=== PATIENT | female | born 1935 ===

== ENCOUNTER 2024-11-30 15:44 | Inpatient (IN) | payer MEDICARE, SELFPAY ==
--- NOTE | ~2024-11-30 | CT_ITS ---
CLINICAL HISTORY: Stroke Protocol r sided weakness ?cva CT head without contrast. COMPARISON: None FINDINGS: The visualized paranasal sinuses are clear. The mastoid air cells are clear. No calvarial fracture. Atherosclerotic intracranial vasculature. No evidence for mass or mass effect. No intracranial hemorrhage or abnormal extra-axial fluid collection. No CT evidence of acute infarct. The ventricles are proportional with the degree of moderate global cerebral volume loss without evidence of hydrocephalus. Basilar cisterns are patent. There are periventricular areas of low attenuation compatible with moderate white matter small vessel disease. Posterior fossa appears unremarkable. IMPRESSION: 1. No acute intracranial findings. This document has been electronically signed by: Sotero Rivas MD on 11/30/2024 16:10:22
--- NOTE | ~2024-11-30 | MR_ITS ---
CLINICAL HISTORY: AMS MR Brain without gadolinium Comparison: CT/SR - CT ANGIO HEAD NECK STROKE - 11/30/24 15:[address]/SR - CT HEAD FOR STROKE - 11/30/24 15:52 EDT Findings: Left basal ganglia restricted diffusion involving the correlate in putamen consistent with acute infarct. There is associated T2/FLAIR hyperintensity. Additional punctate foci of restricted diffusion within the left frontal lobe superior and middle frontal gyrus. Abnormal gradient susceptibility. Moderate periventricular subcortical T2/FLAIR hyperintensities consistent with chronic microvascular ischemic changes. No midline shift. No hydrocephalus. Vascular flow voids are intact. Orbital contents are unremarkable. The sinuses and mastoid air cells are clear. No focal bone lesion. 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 No acute intracranial hemorrhage. Moderate periventricular and subcortical chronic microvascular ischemic changes. This document has been electronically signed by: Babak Quinones MD on 11/30/2024 22:33:03
--- NOTE | ~2024-11-30 | XR_ITS ---
CLINICAL HISTORY: WBC 19, source unclear, weakness Single view of the chest. COMPARISON: None FINDINGS: Borderline cardiomegaly. Atherosclerotic thoracic aorta. Prominence of the central pulmonary vasculature, likely positional. No consolidation. No definite pleural effusion. No pneumothorax. Mild rightward curvature of the midthoracic spine. No fracture identified. IMPRESSION: 1. No consolidation. This document has been electronically signed by: Sotero Rivas MD on 11/30/2024 17:56:07
--- NOTE | ~2024-11-30 | CT_ITS ---
CLINICAL HISTORY: Stroke Protocol r siided weakness CT angiography head and neck with contrast. 3D Postprocessing. COMPARISON: CT head dated 11/30/24 at 15:52 EDT FINDINGS: Calcified plaque present along the aortic arch without significant stenosis. Calcified plaque present along the arch branch vessel origins without significant stenosis. Atherosclerotic plaque present at the origins of the vertebral arteries bilaterally causing less than 50 percent on the left without significant stenosis on the right. Multiple small pockets of calcified plaque present along the common carotid arteries and at the carotid bulbs bilaterally without significant stenosis. Calcified plaque present along the intracranial internal carotid arteries without significant stenosis. Calcified plaque present along the cavernous portion of the internal carotid arteries without significant stenosis. Otherwise the intracranial arteries are widely patent No aneurysm, dissection, hemodynamically significant stenoses, or occlusion. No abnormal intracranial enhancement. The visualized thyroid gland is unremarkable. No cervical mass or fluid collection. Visualized lung apices are clear. Grade 1 retrolisthesis of C4 on C5, degenerative. Moderate multilevel spondylosis. No acute fracture or suspicious bone lesion. IMPRESSION: 1. Patent head and neck CTA. This document has been electronically signed by: Sotero Rivas MD on 11/30/2024 16:31:23
--- NOTE | ~2024-11-30 | XR_ITS ---
CLINICAL HISTORY: fall left buttock bruising AP pelvis, Two views of the right hip. COMPARISON: None FINDINGS: Osteopenia. Pelvic ring appears intact. Contrast present within the urinary bladder. Pelvic phleboliths present. Atherosclerotic vascular calcifications. Degenerative changes of the partially visualized lower lumbar spine. Visualized portions of the contralateral left hip appear intact. Right hip: Visualized portions of the proximal right femur appears intact. No trabecular disruption or cortical discontinuity. Femoral head is appropriately seated in the acetabulum. IMPRESSION: 1. No radiographic evidence of acute injury to the pelvis and right hip. 2. Osteopenia. This document has been electronically signed by: Sotero Rivas MD on 11/30/2024 20:01:44
[2024-11-30 15:46] VITALS: BMI 23.8
--- NOTE | 2024-11-30 15:46 | ECG_ITS ---
Test Reason : ?STROKE Blood Pressure : */* mmHG Vent. Rate : 86 BPM Atrial Rate : 86 BPM P-R Int : 214 ms QRS Dur : 84 ms QT Int : 378 ms P-R-T Axes : 73 58 63 degrees QTcB Int : 452 ms Sinus rhythm with 1st degree A-V block with occasional Premature ventricular complexes Left atrial enlargement Borderline ECG No previous ECGs available Referred By: Kyle Manzano Electronically Signed By: TAYA JACOBSEN
--- NOTE | 2024-11-30 15:50 | ED.GENADULT ---
HPI - General Adult General Chief complaint: Stroke Stated complaint: fall,ams, wkns Time Seen by Provider: 11/30/24 15:46 History of Present Illness ED Provider: Peggy RODRIGUEZ narrative: The patient is an 89-year-old woman who lives at the [facility] with the . Apparently she was in her usual state of health this morning when she ate breakfast. At around 10:00 AM she had a fall. The exact timing of the fall is not clear. The fall occurred in her apartment where she lives with a her . Her has some degree of cognitive impairment. Just before 11:00 AM the patient's daughter happened to call and the answered the phone and explained that the patient was on the floor after a fall. It was not clear if the patient had hit her head because it was not clear if the patient's had witnessed the fall. At that point the daughter contacted staff at the facility and staff helped the patient into the bed. I think the patient was felt to be slightly confused at that time but not severely so. Over the course of the afternoon the degree of confusion seemed more significant and ultimately she was sent to the hospital by ambulance. Staff felt that there might be some right-sided neglect. On arrival here the patient is denying any pain. She denies a headache, chest pain, abdominal pain, nausea, vomiting. There was no report of any fever at the assisted living facility. The patient is poorly oriented and the daughter who was at the bedside says that her mental status is not her usual mental status. Related Data Home Medications ?Medication ?Instructions ?Recorded ?Confirmed No Known Home Meds 11/30/24 11/30/24 Allergies Allergy/AdvReac Type Severity Reaction Status Date / Time No Known Allergies Allergy Verified 11/30/24 16:20 Review of Systems Review of Systems: Yes all other systems are reviewed and are negative [facility] Social History Social History Smoked in Last 30 Days: No Use of substances other than those prescribed or required for medical reasons: No Advance Directives: No Advance Directives Information Provided: No Do you have a plan to hurt others: No Plan Physical Exam ED Vital Signs: Vital Signs - 24 hr 11/30/24 16:00 11/30/24 16:07 11/30/24 18:47 Temperature 99.1 F 98.2 F 99.8 F Pulse Rate 78 87 93 Respiratory Rate 16 18 19 Blood Pressure 134/75 133/55 L 123/67 Pulse Oximetry 98 93 96 Oxygen Delivery Method Room Air Room Air Room Air 11/30/24 18:52 Temperature 99.8 F Pulse Rate Respiratory Rate Blood Pressure Pulse Oximetry Oxygen Delivery Method BMI result Body Mass Index 23.8 Const Other: The patient is an 89-year-old woman who is awake and alert. She does not seem in acute distress. Her level of alertness seems normal but she is poorly oriented. She is able to tell me her correct age and she is able to tell me the correct month but she was unable to tell me that we were and a hospital or that we were in [place]. She seemed to think we were in [place]. HENMT Other: No obvious facial asymmetry. The tongue is midline. Mucous membranes are moist. Eyes Other: Pupils are round equal, extraocular movements are intact, lateral gaze is intact bilaterally, visual diaz are intact to confrontation. Neck Other: No posterior midline C-spine tenderness. No pain with range of motion of the neck. The C-spine is clinically clear. The neck seems supple. Resp Effort & Inspection: normal respiratory effort Auscultation: clear to auscultation bilaterally Cardio Rate: regular rate Rhythm: regular rhythm Heart sounds: S1 normal heart sound present and S2 normal heart sound present GI Other: Abdomen is soft and nontender Back/Spine/Pelvis Other: No midline vertebral tenderness in the thoracic or lumbar spine. No signs of trauma to the spine or back Skin Other: there is some small areas of bruising on the right upper buttock. The skin is otherwise dry and unremarkable. Neuro Other: the patient is awake and alert. She is able to tell me her correct age and the correct month but she can not tell me the correct year or tell me where we are. She seems poorly oriented with the guard to the year and location. She was able to tell me the name of her daughter who was at the bedside. However she identified her daughter has a granddaughter. Lateral gaze is intact bilaterally. Visual diaz are intact bilaterally. No definite facial asymmetry. No dysarthria. She may have some mild aphasia primarily manifested by paucity of speech.. The patient has good strength in all 4 extremities although there is a very minimal hint of a possible slight right arm pronator drift. 5/5 strength in both legs. Coordination seems intact. Finger-nose seems reasonably good, heel-dee seems reasonably Good. NIH stroke scale is low, it is possible she has some very mild right arm pronator drift which would give her a point. There may be some slight aphasia which would also give her a point. Overall there is a vague sense that she seems more oriented to the left so there is possibly some very mild right-sided neglect. At most NIH stroke scale is 3. Extrem Other: No peripheral edema Medications Administered Discontinued Medications Generic Name Dose Route Start Last Admin Trade Name Shviani PRN Reason Stop Dose Admin Aspirin 324 mg 11/30/24 18:54 11/30/24 19:45 Aspirin 81 Mg Tab.Chew PO 11/30/24 18:55 324 mg ONCE ONE Administration Aspirin 325 mg 11/30/24 22:41 11/30/24 22:48 Aspirin Enteric Coated 325 Mg Tablet.Dr PO 11/30/24 22:42 Not Given ONCE ONE Lactated Ringer's 500 mls @ 999 mls/hr 11/30/24 19:15 11/30/24 21:00 Lr IV 11/30/24 19:45 Infused .Q31M JAYA Infusion Iohexol 100 ml 11/30/24 16:08 11/30/24 16:08 Iohexol 350 Mg/Ml 100 Ml Infus..Btl IV 11/30/24 16:09 65 ml ONCE ONE Administration Medical Decision Making Medical Decision Making MDM Narrative: The patient is an 89-year-old female who, according to her daughter, does not have a significant history of cognitive impairment. The patient lives at an assisted living facility with her . They share an apartment. Apparently the has cognitive impairment. It seems as though the the patient was in her normal state of mind this morning at breakfast. Staff had observed her as being well this morning. At some point later in the morning however the patient had a fall in her apartment. It is not clear if this was a witnessed fall or not. The would has been the only witness. Apparently the tried to get the patient off the floor but was unable to. Ultimately the patient's daughter happened to call the for unrelated reasons at the told the daughter about the fall. At that point the daughter contacted staff at the facility and staff helped the patient into her bed. The patient may have been mildly confused at that time. during the afternoon the patient seemed to be come possibly more confused and ultimately she was sent to the hospital. There was some concern about possible right-sided weakness or neglect. The daughter who made the call just before 11:00 AM suspects that the fall might have happened at around 10:00 AM. The patient arrived at the hospital at 15:44, this would be outside the window for consideration of thrombolytic therapy if the patient's symptoms are related to a stroke today. Based on my discussion with the daughter I would say that the patient's last known well time was sometime before 10:00 AM. The patient therefore presented outside the window for thrombolytic therapy. Her CT angiogram showed no acute vascular occlusion. The patient is physical exam is most significant for disorientation and a somewhat flat affect. There is a vague sense of possible right pronator drift that is very subtle. She also seems to have a tendency to pay more attention to the left side of the world but if this is neglect is quite subtle. I initially had a suspicion that the patient's presentation might be more related to an infectious process but her infectious workup is negative. [place] [id number] but we have taken too rectal temperature is and there is no fever. Her CRP and procalcitonin are unremarkable. Ultimately I did not see any indication for antibiotics. Additionally her viral swab is negative. It was clear that the patient would need to be hospitalized because of this acute change in her mental status. The patient has been hemodynamically stable. She has an EKG that shows normal sinus rhythm..She passed a swallow eval. I ordered a dose of aspirin. The patient was admitted to the hospitalist service. An MRI was ordered by the hospitalist which resulted showing signs of an acute infarction with findings of a left basal ganglia acute ischemic infarct involving the caudate and putamen. there were also findings of scattered small foci of acute ischemic infarcts within the left frontal lobe concerning for embolic phenomena. Lab Data 11/30/24 15:49 11/30/24 15:49 Labs: Lab Results 11/30/24 11/30/24 11/30/24 Range/Units 15:39 15:49 16:49 WBC 19.8 H (4.8-10.8) X10*3/uL RBC 4.78 (4.20-5.50) X10*6/uL Hgb 14.2 (12.0-16.0) g/dl Hct 41.6 (37.0-47.0) % MCV 87.0 (80.0-98.0) fL MCH 29.7 (27.0-33.0) pg MCHC 34.1 (31.0-35.0) g/dl RDW 13.8 (11.0-16.0) % Plt Count 286 (160-400) X10*3/uL MPV 11.7 (9.4-12.3) fL Immature Gran % (Auto) 0.4 (0.0-0.4) % Neut % (Auto) 91.9 H (45-73) % Lymph % (Auto) 3.8 L (20-40) % [place] % (Auto) 3.7 (2-11) % Eos % (Auto) 0.0 (0-4) % Baso % (Auto) 0.2 (0-2) % Lymph # (Auto) 0.8 L (1.2-4.9) X10*3/uL [place] # (Auto) 0.7 (0.1-1.2) X10*3/uL Eos # (Auto) 0.0 (0.0-0.4) X10*3/uL Baso # (Auto) 0.0 (0.0-0.2) X10*3/uL Abs Immat Gran (auto) 0.08 H (0.00-0.03) X10*3/uL Absolute Neuts (auto) 18.2 H (2.0-8.3) x10*3/uL Absolute Nucleated RBC 0.000 (0.0-0.012) X10*3/uL Nucleated RBC % (auto) 0.0 (0.0-0.2) /100WBC Smear Tech's Comments VERIFIED Hold Purple Top SEE NOTE PT 11.9 (10.9-12.4) SEC INR 1.0 (0.9-1.1) APTT 26.3 (26.0-36.8) SEC Sodium 143 (135-145) mmol/L Potassium 3.7 (3.3-5.1) mmol/L Chloride 107 (96-108) mmol/L Carbon Dioxide 25 (22-29) mmol/L Anion Gap 15 (12-20) BUN 18 H (9-16) mg/dL Creatinine 0.75 (0.5-1.4) mg/dL Estim Creat Clear Calc 41.7 Estimated GFR > 60 POC Glucose 132 H (60-115) mg/dL Random Glucose 142 H (60-115) mg/dL Lactic Acid 2.0 (0.5-2.0) mmol/L Calcium 9.5 (8.4-10.2) mg/dL Magnesium 1.9 (1.6-2.6) mg/dL Troponin I High Sens 7.5 (<3.5-17.0) ng/L C-Reactive Protein 0.37 (< or = 0.50) mg/dL B-Natriuretic Peptide 140 H (<100) pg/mL Triglycerides 50 (<150) mg/dL Cholesterol 247 H (<200) mg/dL LDL Cholesterol, Calc 175 H (<100) mg/dL HDL Cholesterol 62 (>40) mg/dL Procalcitonin 0.08 ng/mL Urine Color Urine Appearance Urine pH (5.0-9.0) Ur Specific [place] (1.005-1.025) Urine Protein (Neg-Trace) mg/dL Urine Glucose (UA) (Negative) mg/dL Urine Ketones (Negative) mg/dL Urine Blood (Negative) Urine Nitrite (Negative) Ur Leukocyte Esterase (Negative) Influenza Type A (PCR) (Negative) Influenza Type B (PCR) (Negative) RSV RNA Qual (PCR) (Negative) SARS-CoV-2 RNA (RT-PCR) (Negative) 11/30/24 Range/Units 16:56 WBC (4.8-10.8) X10*3/uL RBC (4.20-5.50) X10*6/uL Hgb (12.0-16.0) g/dl Hct (37.0-47.0) % MCV (80.0-98.0) fL MCH (27.0-33.0) pg MCHC (31.0-35.0) g/dl RDW (11.0-16.0) % Plt Count (160-400) X10*3/uL MPV (9.4-12.3) fL Immature Gran % (Auto) (0.0-0.4) % Neut % (Auto) (45-73) % Lymph % (Auto) (20-40) % [place] % (Auto) (2-11) % Eos % (Auto) (0-4) % Baso % (Auto) (0-2) % Lymph # (Auto) (1.2-4.9) X10*3/uL [place] # (Auto) (0.1-1.2) X10*3/uL Eos # (Auto) (0.0-0.4) X10*3/uL Baso # (Auto) (0.0-0.2) X10*3/uL Abs Immat Gran (auto) (0.00-0.03) X10*3/uL Absolute Neuts (auto) (2.0-8.3) x10*3/uL Absolute Nucleated RBC (0.0-0.012) X10*3/uL Nucleated RBC % (auto) (0.0-0.2) /100WBC Smear Tech's Comments Hold Purple Top PT (10.9-12.4) SEC INR (0.9-1.1) APTT (26.0-36.8) SEC Sodium (135-145) mmol/L Potassium (3.3-5.1) mmol/L Chloride (96-108) mmol/L Carbon Dioxide (22-29) mmol/L Anion Gap (12-20) BUN (9-16) mg/dL Creatinine (0.5-1.4) mg/dL Estim Creat Clear Calc Estimated GFR POC Glucose (60-115) mg/dL Random Glucose (60-115) mg/dL Lactic Acid (0.5-2.0) mmol/L Calcium (8.4-10.2) mg/dL Magnesium (1.6-2.6) mg/dL Troponin I High Sens (<3.5-17.0) ng/L C-Reactive Protein (< or = 0.50) mg/dL B-Natriuretic Peptide (<100) pg/mL Triglycerides (<150) mg/dL Cholesterol (<200) mg/dL LDL Cholesterol, Calc (<100) mg/dL HDL Cholesterol (>40) mg/dL Procalcitonin ng/mL Urine Color Yellow Urine Appearance Clear Urine pH 7.0 (5.0-9.0) Ur Specific [place] >= 1.030 H (1.005-1.025) Urine Protein Negative (Neg-Trace) mg/dL Urine Glucose (UA) Negative (Negative) mg/dL Urine Ketones Trace (Negative) mg/dL Urine Blood Negative (Negative) Urine Nitrite Negative (Negative) Ur Leukocyte Esterase Negative (Negative) Influenza Type A (PCR) NEGATIVE (Negative) Influenza Type B (PCR) NEGATIVE (Negative) RSV RNA Qual (PCR) NEGATIVE (Negative) SARS-CoV-2 RNA (RT-PCR) NEGATIVE (Negative) Critical Care Time Critical Care Time Critical Care Time: Yes Total Critical Care Time: 35 Attestation: The patient was critically ill with a high probability of imminent or life-threatening deterioration. I spent greater than 30 minutes of discontinuous time evaluating the patient, delivering critical care at the bedside, discussing evaluating data with consultants. Critical care time does not include time spent performing separately billable procedures or teaching. Time spent performing critical care with 35 minutes. Discharge Plan Discharge Clinical Impression: Altered mental status Qualifiers: Altered mental status type: unspecified Qualified Code(s): R41.82 - Altered mental status, unspecified Patient Disposition: Admitted As Inpatient
[2024-11-30 15:54] LABS: Basophils Percent Auto 0.2 % (0-2); Hematocrit 41.6 % (37.0-47.0); Hemoglobin 14.2 g/dl (12.0-16.0); Imm Gran Abs Auto 0.08 X10*3/uL (0.00-0.03); Imm Gran Pct Auto 0.4 % (0.0-0.4); Lymphocytes Absolute Auto 0.8 X10*3/uL (1.2-4.9); Lymphocytes Percent Auto 3.8 % (20-40); MANUAL DIFF FLAG SCAN; Mean Corpuscular HGB Conc 34.1 g/dl (31.0-35.0); Mean Corpuscular Hemoglobin 29.7 pg (27.0-33.0); Mean Platelet Volume 11.7 fL (9.4-12.3); Monocytes Absolute Auto 0.7 X10*3/uL (0.1-1.2); Monocytes Percent Auto 3.7 % (2-11); Neutrophils Absolute Auto 18.2 x10*3/uL (2.0-8.3); Neutrophils Percent Auto 91.9 % (45-73); Platelet Count 286 X10*3/uL (160-400); Red Blood Count 4.78 X10*6/uL (4.20-5.50); Red Cell Distribution Width 13.8 % (11.0-16.0); SCAN SMEAR FLAG 1; White Blood Count 19.8 X10*3/uL (4.8-10.8)
[2024-11-30 16:00] VITALS: BP 134/75; BP 152/74; PULSE 78; PULSE 97; RESP 16; TEMP 37.3; O2SAT 100; O2SAT 98; BMI 23.8
[2024-11-30 16:02] LABS: Prothrombin Time 11.9 SEC (10.9-12.4)
[2024-11-30 16:04] LABS: Partial Thromboplastin Time 26.3 SEC (26.0-36.8)
[2024-11-30 16:06] LABS: Stroke Lab Use COMPLETE
[2024-11-30 16:07] VITALS: BP 133/55; PULSE 87; RESP 18; TEMP 36.8; O2SAT 93
[2024-11-30 16:07] LABS: Anion Gap 15 (12-20); Blood Urea Nitrogen 18 mg/dL (9-16); Calcium 9.5 mg/dL (8.4-10.2); Carbon Dioxide 25 mmol/L (22-29); Chloride 107 mmol/L (96-108); Cholesterol 247 mg/dL (<200); Creatinine Clr Calc Pharmacy 41.7; Estimated Glomerular Filt Rate > 60; Glucose Random 142 mg/dL (60-115); HDL Cholesterol 62 mg/dL (>40); LDL Cholesterol Calculated 175 mg/dL (<100); Potassium 3.7 mmol/L (3.3-5.1); Sodium 143 mmol/L (135-145); Triglycerides 50 mg/dL (<150)
[2024-11-30] MEDS: iohexoL 350 MG/ML 100 ML INFUS..BTL IV (16:08)
[2024-11-30 16:15] LABS: SLIDE REVIEW VERIFIED; Troponin-I High Sensitivity 7.5 ng/L (<3.5-17.0)
[2024-11-30 17:05] LABS: Appearance Urine Clear; Color Urine Yellow; Glucose Urine UA Negative (Negative); Leukocyte Esterase Urine Negative (Negative); Nitrite Urine Negative (Negative); Specific Gravity - Urine >= 1.030 (1.005-1.025); Urine Blood Negative (Negative); Urine Ketones Trace mg/dL (Negative); Urine Protein Negative (Neg-Trace)
[2024-11-30 17:06] LABS: C Reactive Protein 0.37 mg/dL (< or = 0.50); Magnesium 1.9 mg/dL (1.6-2.6)
[2024-11-30 17:23] LABS: B Type Natriuretic Peptide 140 pg/mL (<100)
--- NOTE | 2024-11-30 17:28 | PC.NURSE ---
On arrival to ER, pt had equal smile with no facial droop, equal ROM/CMS all 4 limbs, though weaker than usual; pt confused to place, date, oriented to self, birthdate; pt/dgtr reported that pt was having dysuria and urinary frequency lately and felt off ; temp 99.1 rectally; WBC 19; pt having visible chills
[2024-11-30 17:39] LABS: Influenza A PCR NEGATIVE (Negative); Influenza B PCR NEGATIVE (Negative); Resp Syncy Virus RNA Qual PCR NEGATIVE (Negative); SARS COV2 PCR INHOUSE NEGATIVE (Negative)
[2024-11-30 18:12] LABS: Procalcitonin 0.08 ng/mL
[2024-11-30 18:47] VITALS: BP 123/67; PULSE 93; RESP 19; TEMP 37.7; O2SAT 96
[2024-11-30 18:52] VITALS: TEMP 37.7
--- NOTE | 2024-11-30 18:52 | PC.NURSE ---
Late chart entry:pt has an ecchymotic area to lower R buttock; no deformities, skin intact; pt has no tenderness with palpation; MD shown bruise
[2024-11-30] MEDS: Aspirin 81 MG TAB.CHEW 324 MG PO (19:45)
--- NOTE | 2024-11-30 19:45 | PC.NURSE ---
assumed of care at 1914. pt taken to xray to obtain images of hip. upon return at 1944 pt medicated per nov, tolerated po meds well 1 by 1. ivf infusing. vss. pt is axox2, aware of person, some of situation, aware is in hospital unsure which, states it is november. verbalizes recognizing daughter at bedside. answers questions appropriately. denies pain. strength weak but equal BUE & BLE. pt appears to stare to the left. pt is on cardiac and o2 monitor. purewick in place. educated daughter on plan of care for admission, awaiting admit orders at this time. daughter states she would like to be contacted prior to administering new meds. daughter verbalizes pt does not have an allergy to, but would prefer for sulfa/cipro meds to not be administered unless in life threatening situations. aware. at this time daughter remains at bedside and states will notify RN prior to leaving. lights turned off per pt request. call manzano within reach.
[2024-11-30] MEDS: Lactated Ringers 500 ML 999 ML IV (19:52)
--- NOTE | 2024-11-30 20:16 | PM.IMHP ---
History of Present Illness Date of Service: 11/30/24 Chief Complaint: confusion 89-year-old female with no significant past medical history presented to the hospital with a chief complaint of fall. Most of the history obtained from the patient and patient's daughter at bedside. Patient is alert and oriented x2 at the time of my interview. But answers questions fairly okay except he is intermittently forgetful. Patient daughter mentioned that patient had a fall today at the assisted living distally with the patient is living. Fall was unwitnessed. But reportedly patient probably had a head strike. Patient denies any loss of consciousness. Patient denies any neck pain or back pain. Denies any hip pain. Patient denies any chest pain or palpitations. Denies any fever chills cough or sputum production. Denies any GI symptoms. Review of all other systems is negative except mentioned above ER course: Per ER physician, patient on presentation appeared to be mildly confused; blood pressure was stable; musculoskeletal exam benign. On neurological exam there was mild right-sided pronator drift-questionable; CT head and CT angio head and neck were done which showed acute findings. Patient had low-grade temperature 99 degrees F. ESR CRP and procalcitonin negative. Chest x-ray showed no acute findings. UA negative. But not a mild leukocytosis-presumed to be reactive. PMFSH Social History Smoked in Last 30 Days: No Use of substances other than those prescribed or required for medical reasons: No Advance Directives: No Advance Directives Information Provided: No Do you have a plan to hurt others: No Plan Meds Allergies Allergy/AdvReac Type Severity Reaction Status Date / Time No Known Allergies Allergy Verified 11/30/24 16:20 Home Medications ?Medication ?Instructions ?Recorded ?Confirmed ?Last Taken ?Type No Known Home Meds 11/30/24 11/30/24 Unknown History Physical Exam Vital Signs and Narrative: Vital Signs: Last Vital Signs Temp 99.8 F 11/30/24 18:52 Pulse 93 11/30/24 18:47 Resp 19 11/30/24 18:47 BP 123/67 11/30/24 18:47 Pulse Ox 96 11/30/24 18:47 O2 Del Method Room Air 11/30/24 18:47 BMI result Body Mass Index 23.8 Gen: Appears be in no acute distress HEENT: NCAT, Moist mucosa. Pulmonary: Vesicular breath sounds, fair air entry CVS: Normal S1-S2 Abdomen: BS+, Soft, Nontender Extremities: Warm well perfused Neuro: Alert and awake. Oriented x2. Grossly nonfocal. Results Labs 11/30/24 15:49 11/30/24 15:49 Labs: Laboratory Results - last 24 hr 11/30/24 11/30/24 11/30/24 15:39 15:49 16:49 MCV 87.0 MCH 29.7 MCHC 34.1 RDW 13.8 Plt Count 286 MPV 11.7 Immature Gran % (Auto) 0.4 Neut % (Auto) 91.9 H Lymph % (Auto) 3.8 L [place] % (Auto) 3.7 Eos % (Auto) 0.0 Baso % (Auto) 0.2 Lymph # (Auto) 0.8 L [place] # (Auto) 0.7 Eos # (Auto) 0.0 Baso # (Auto) 0.0 Abs Immat Gran (auto) 0.08 H Absolute Neuts (auto) 18.2 H Absolute Nucleated RBC 0.000 Nucleated RBC % (auto) 0.0 Smear Tech's Comments VERIFIED Hold Purple Top SEE NOTE PT 11.9 INR 1.0 APTT 26.3 Anion Gap 15 Estim Creat Clear Calc 41.7 Estimated GFR > 60 Random Glucose 142 H Lactic Acid 2.0 Calcium 9.5 Magnesium 1.9 C-Reactive Protein 0.37 B-Natriuretic Peptide 140 H Triglycerides 50 Cholesterol 247 H LDL Cholesterol, Calc 175 H HDL Cholesterol 62 Procalcitonin 0.08 Urine Color Urine Appearance Urine pH Ur Specific [place] Urine Protein Urine Glucose (UA) Urine Ketones Urine Blood Urine Nitrite Ur Leukocyte Esterase Influenza Type A (PCR) Influenza Type B (PCR) RSV RNA Qual (PCR) SARS-CoV-2 RNA (RT-PCR) 11/30/24 16:56 MCV MCH MCHC RDW Plt Count MPV Immature Gran % (Auto) Neut % (Auto) Lymph % (Auto) [place] % (Auto) Eos % (Auto) Baso % (Auto) Lymph # (Auto) [place] # (Auto) Eos # (Auto) Baso # (Auto) Abs Immat Gran (auto) Absolute Neuts (auto) Absolute Nucleated RBC Nucleated RBC % (auto) Smear Tech's Comments Hold Purple Top PT INR APTT Anion Gap Estim Creat Clear Calc Estimated GFR Random Glucose Lactic Acid Calcium Magnesium C-Reactive Protein B-Natriuretic Peptide Triglycerides Cholesterol LDL Cholesterol, Calc HDL Cholesterol Procalcitonin Urine Color Yellow Urine Appearance Clear Urine pH 7.0 Ur Specific [place] >= 1.030 H Urine Protein Negative Urine Glucose (UA) Negative Urine Ketones Trace Urine Blood Negative Urine Nitrite Negative Ur Leukocyte Esterase Negative Influenza Type A (PCR) NEGATIVE Influenza Type B (PCR) NEGATIVE RSV RNA Qual (PCR) NEGATIVE SARS-CoV-2 RNA (RT-PCR) NEGATIVE Assessment and Plan (1) Altered mental status: Qualifiers: Altered mental status type: unspecified Qualified Code(s): R41.82 - Altered mental status, unspecified Status: Acute Plan 89-year-old female with no significant past medical history presented to the hospital with a chief complaint of fall/confusion. Altered mental status: Patient's mental status gradually improving. Currently oriented x2. No obvious signs of infection. Patient appears mildly dehydrated. ER patient questioned mild pronator drift on the right side. On my exam no significant pronator drif noted, Strength equal b/l; Gait not tested. CT head and CT angio head and neck showed no acute findings. Will obtain MRI brain Will obtain TSH, folate, B12, RPR Gentle IV fluids PT/OT/EMBLEM FUSER TENDER eval Neurology consult Fall precautions Update: MRI brain resulted Acute ischemic infarct of the left basal ganglia involving the caudate and putamen as well as multiple scattered small foci of acute ischemic infarcts within the left frontal lobe, concerning for embolic etiology. No acute intracranial hemorrhage. Moderate periventricular and subcortical chronic microvascular ischemic changes. BNP- 162/63-> will hold antihypertensives for permissive HTN s/w ASa,lipitor f/u HbA1c, Lipid panel, TSH Leukocytosis: Likely reactive. Will monitor. DVT prophylaxis: SCD boots Code status: DNR/DNI. Confirmed with the patient's daughter. Quality Stroke Does the patient have a stroke diagnosis?: No VTE Prior VTE?: No VTE Risk Level:: Medical - moderate - high VTE Device Contraindication: N/A - Device Ordered VTE Drug Contraindication: Treatment Not Indicated
--- NOTE | 2024-11-30 21:00 | PC.NURSE ---
MRI screening form completed with daughter and sent to MRI staff. awaiting transport.
[2024-11-30 21:05] LABS: Glucose, Whole Blood 132 mg/dL (60-115)
[2024-11-30 21:36] VITALS: PULSE 86; RESP 16; TEMP 37.6; O2SAT 95
[2024-11-30 22:44] VITALS: BP 162/63; PULSE 72; RESP 16; O2SAT 96
--- NOTE | 2024-11-30 22:45 | PC.NURSE ---
pt return from MRI. vitals as documented. MD Pascual aware of BP. nad. pt resting comfortably. purewick in place. call manzano within reach.
[2024-12-01] VITALS (8 sets, daily range): BP systolic 122–162; BP diastolic 58–93; PULSE 57–85; RESP 15–20; TEMP 36.5–37; O2SAT 92–96; BMI 23.2
--- NOTE | 2024-12-01 07:00 | CA_ITS ---
Transthoracic Echocardiogram Patient (Last, First, Middle): Jazmin Newton, Gender: Female Date of : 1935 Age: 89 Procedure Date: 12/01/2024 Procedure Type: Transthoracic [place]ogram [place] [facility] [place]: 157.48 cm Weight: 57.15 kg BSA: 1.57 m2 Heart Rate: bpm BP: 143 / 66 mmHg Skirt Clipper: Referring MD: Vishnu Pascual MD Symptoms: ?CVA; p/w fall/ confusion Study Quality: Fair ECG Rhythm: Sinus Conclusions: - The left ventricular systolic function is normal. The calculated ejection fraction is 64% by biplane method. - The basal inferior segment is akinetic. - No obvious valvular pathology seen on this study. Findings Left Ventricle Normal left ventricular cavity size. There is normal left ventricular wall thickness. The left ventricular systolic function is normal. The calculated ejection fraction is 64% by biplane method. Evidence suggests grade I (mild) diastolic dysfunction. Wall Motion Rest Echo Findings The basal inferior segment is akinetic. Right Ventricle Normal right ventricular cavity size and systolic function. Atria The left atrium is normal in size. The right atrium is mildly dilated. Aortic Valve There is a normal trileaflet aortic valve. There is mild calcification of the aortic valve. There is no aortic valve stenosis. There is trace (trivial) aortic valve regurgitation. Mitral Valve The mitral valve appears normal. There is trace mitral valve regurgitation. There is no mitral valve stenosis. Pulmonic Valve The pulmonic valve is likely normal. Tricuspid Valve Normal tricuspid valve structure. There is trace tricuspid valve regurgitation. There is no evidence of pulmonary hypertension. Great Vessels The asc aorta is normal in size. Moderate plaque is seen in the sino tubular ridge. Venous The inferior vena cava is normal in size and collapses greater than 50% with inspiration. Pericardium/Pleural There is no evidence of pericardial effusion. Prior Study Comparison No prior study available for comparison. Recommendations, Care & Conclusions No obvious valvular pathology seen on this study. Measurements 2D Linear Measurements IVSd: 0.91 0.6-0.9/0.6-1.0 cm LVIDd: 3.97 3.9-5.3/4.2-5.9 cm LVIDd Index: 2.53 2.4-3.2/2.2-3.1 cm/m2 LVIDs: 2.33 2.0-3.6 cm LVPWd: 0.90 0.7-1.1 cm LA Diam: 2.50 2.7-3.8/3.0-4.0 cm LAIDs Index: 1.59 1.5-2.3 cm/m2 LV Mass: 135.96 67-162/88-224 g LV Mass Index: 86.60 43-95/49-115 g/m2 LVOT Diam: 2.10 3.0+(-)1.3 cm 2D Systolic Function EF 4C: 66.50 >55% EF 2C: 60.20 >55% EF BiP: 63.60 >55% Mitral Valve MV Pk E: 0.94 MV PK A: 1.13 MV Decel Time: 219.00 E/A: 0.80 E'Lateral: 6.42 E'Medial: 6.42 E/E' Med: 14.60 E/E' Lat: 14.60 PHT: 64.00 MVA PHT: 3.44 Decel Fannin: 4.29 Aortic Valve AoV Pk Sergio: 1.57 AoV Mn Sergio: 0.96 AoV VTI: 0.34 AoV Pk Grad: 10.00 Aov Mn Grad: 5.00 JULIA Cont.VTI: 1.87 LVOT LVOT Pk Sergio: 0.87 LVOT Mn Sergio: 0.56 LVOT VTI: 0.19 LVOT Pk Grad: 3.00 LVOT Mn Grad: 2.00 LVOT Diam: 2.10 LVOT Area: 3.46 Diastolic Function MV Pk E: 0.94 MV Pk A: 1.13 E/A: 0.80 E'Medial: 6.42 E/E' Med: 14.60 E' Laterial: 6.42 E/E' Lat: 14.60 Right Ventricle TAPSE (mm): 34.00 TVS' Sergio: 15.60 Tricuspid Valve TR Pk Sergio: 2.28 TR Pk Grad: 21.00 Great Vessels Aorta Sinus of Valsalva: 2.60 2.0-3.5 cm Ao Asc: 2.70 2.1-3.4 cm Pulmonary Valve PV Pk Sergio: 0.98 Peak PV Grad: 4.00 Updated in Other Vendor System with Status of Final Simon Sanchez MD electronically signed on 12/02/2024 10:01:47 AM with status of Final
[2024-12-01] MEDS: 0.9 % Sodium Chloride Flush 3 ML SYRINGE IVFLUSH ×2 (09:04→15:26)
[2024-12-01] MEDS: Aspirin Enteric Coated 81 MG TABLET.DR PO (09:33)
--- NOTE | 2024-12-01 10:09 | PHA.MEDREC ---
Addendum entered by Ankit Alvarado 12/01/24 10:23: reviewed Original Note: Pharmacy Consult ? Medication Reconciliation Pharmacy has reviewed the medication reconciliation done by nursing. Spoke to patient daughter Oumou to confirm. Daughter states patient doesn't take any medication except for a compounded antigen injection. Patient's daughter said she will bring in.
--- NOTE | 2024-12-01 11:06 | MHC.CM.PN ---
IMM 12/01/24, Pt lives at [facility], independent living. She does not have home health service or VNA. She has HCP, her dtr, Anjelica Newton, copy requested. PCP confirmed: Roxanna Londono. For DME, she uses a walker. DCP is rehab. CM to follow for DC needs.
--- NOTE | 2024-12-01 12:01 | P.PNIM_ITS ---
Subjective Subjective Date of Service: 12/01/24 Interval History: no copmlaints Physical Exam 2 Vital Signs: Vital Signs: Last Vital Signs Temp 98.4 F 12/01/24 11:00 Pulse 57 12/01/24 11:00 Resp 20 12/01/24 11:00 BP 129/60 12/01/24 11:00 Pulse Ox 94 12/01/24 11:00 O2 Del Method Room Air 12/01/24 11:00 BMI result Body Mass Index 23.2 Alert and oriented, no acute distress, diffuse weakness Objective Data Active Medications Acetaminophen (Acetaminophen 325 Mg Tablet) 650 mg PO Q6H PRN PRN Reason: Pain, Mild 1-3,fever,headache Aspirin (Aspirin Enteric Coated 81 Mg Tablet.Dr) 81 mg PO DAILY [facility] Last Admin: 12/01/24 09:33 Dose: 81 mg Documented By: ARCHIE Atorvastatin Calcium (Atorvastatin Calcium 80 Mg Tablet) 80 mg PO BEDTIME [facility] Calcium Carbonate (Calcium Carbonate 750 Mg Tab.Chew) 750 mg PO Q4H PRN PRN Reason: Heartburn Magnesium Hydroxide (Milk Of Magnesia 30 Ml Oral.Susp) 30 ml PO DAILY PRN PRN Reason: Constipation Melatonin (Melatonin 3 Mg Tablet) 6 mg PO BEDTIME PRN PRN Reason: Insomnia Nicotine (Nicotine 21 Mg Patch.Td24) 21 mg TRANSDERMA DAILY [facility] Last Admin: 12/01/24 08:24 Dose: Not Given Documented By: ARCHIE Non-Admin Reason: Patient Refused Sodium Chloride (0.9 % Sodium Chloride Flush 3 Ml Syringe) 3 ml IVFLUSH QSHIFT [facility] Last Admin: 12/01/24 09:04 Dose: 3 ml Documented By: KISHA Labs 11/30/24 15:49 11/30/24 15:49 Labs: Laboratory Results - last 24 hr 11/30/24 11/30/24 11/30/24 15:39 15:49 16:49 MCV 87.0 MCH 29.7 MCHC 34.1 RDW 13.8 Plt Count 286 MPV 11.7 Immature Gran % (Auto) 0.4 Neut % (Auto) 91.9 H Lymph % (Auto) 3.8 L [place] % (Auto) 3.7 Eos % (Auto) 0.0 Baso % (Auto) 0.2 Lymph # (Auto) 0.8 L [place] # (Auto) 0.7 Eos # (Auto) 0.0 Baso # (Auto) 0.0 Abs Immat Gran (auto) 0.08 H Absolute Neuts (auto) 18.2 H Absolute Nucleated RBC 0.000 Nucleated RBC % (auto) 0.0 Smear Tech's Comments VERIFIED Hold Purple Top SEE NOTE PT 11.9 INR 1.0 APTT 26.3 Anion Gap 15 Estim Creat Clear Calc 41.7 Estimated GFR > 60 POC Glucose 132 H Random Glucose 142 H Lactic Acid 2.0 Calcium 9.5 Magnesium 1.9 C-Reactive Protein 0.37 B-Natriuretic Peptide 140 H Triglycerides 50 Cholesterol 247 H LDL Cholesterol, Calc 175 H HDL Cholesterol 62 Procalcitonin 0.08 Urine Color Urine Appearance Urine pH Ur Specific [place] Urine Protein Urine Glucose (UA) Urine Ketones Urine Blood Urine Nitrite Ur Leukocyte Esterase Influenza Type A (PCR) Influenza Type B (PCR) RSV RNA Qual (PCR) SARS-CoV-2 RNA (RT-PCR) 11/30/24 12/01/24 16:56 05:10 MCV MCH MCHC RDW Plt Count MPV Immature Gran % (Auto) Neut % (Auto) Lymph % (Auto) [place] % (Auto) Eos % (Auto) Baso % (Auto) Lymph # (Auto) [place] # (Auto) Eos # (Auto) Baso # (Auto) Abs Immat Gran (auto) Absolute Neuts (auto) Absolute Nucleated RBC Nucleated RBC % (auto) Smear Tech's Comments Hold Purple Top PT INR APTT Anion Gap Estim Creat Clear Calc Estimated GFR POC Glucose Random Glucose Lactic Acid Calcium Magnesium C-Reactive Protein B-Natriuretic Peptide Triglycerides 52 Cholesterol 214 H LDL Cholesterol, Calc 146 H HDL Cholesterol 58 Procalcitonin Urine Color Yellow Urine Appearance Clear Urine pH 7.0 Ur Specific [place] >= 1.030 H Urine Protein Negative Urine Glucose (UA) Negative Urine Ketones Trace Urine Blood Negative Urine Nitrite Negative Ur Leukocyte Esterase Negative Influenza Type A (PCR) NEGATIVE Influenza Type B (PCR) NEGATIVE RSV RNA Qual (PCR) NEGATIVE SARS-CoV-2 RNA (RT-PCR) NEGATIVE Assessment and Plan (1) CVA (cerebral vascular accident): Status: Acute Plan 89F no significant past medical history who presented with fall and confusion Acute CVA Concern for cardioembolic Continue aspirin statin for now, follow up echo, PT OT Passed bedside speech eval will order diet Monitored on telemetry Neuro eval DVT prophylaxis - will likely start AC DNR/DNI reason for continued hospitalization: Neuro eval pending Quality Stroke Does the patient have a stroke diagnosis?: No VTE Prior VTE?: No VTE Risk Level:: Medical - moderate - high VTE Device Contraindication: N/A - Device Ordered VTE Drug Contraindication: Treatment Not Indicated
--- NOTE | 2024-12-01 12:43 | PM.NEUROCN ---
History of Present Illness Data of Consult Service Date: 12/01/24 Primary Care Provider: Roxanna Londono NP HPI Reason for consult: Stroke 89 years old woman who was brought to hospital after she had a fall. On initial evaluation she noted to be confused and had further evaluations, which revealed a stroke prompting this consultation. Exact onset of stroke was unclear and the initial diagnosis was unclear. Her daughter was sitting in the room stating that she was living in a retirement but did not have any significant cognitive issue before that but now was struggling. There was no complaint of headache nausea or vomiting or any cardiac symptoms. Review of Systems Review of Systems: No recent cold or flu-like illness cough or burning urination. [facility] Past Medical History Medical History (Updated 12/01/24 @ 12:46 by Naty Pitts MD) CVA (cerebral vascular accident) Social History Social History Household Members: None Housing: Assisted Living Facility Patient Tobacco Use Status: Never used Tobacco service: No Meds Allergies Allergy/AdvReac Type Severity Reaction Status Date / Time No Known Allergies Allergy Verified 11/30/24 16:20 Active Medications: Current Medications Acetaminophen (Acetaminophen 325 Mg Tablet) 650 mg PO Q6H PRN PRN Reason: Pain, Mild 1-3,fever,headache Apixaban (Apixaban 2.5 Mg Tablet) 2.5 mg PO BID JAYA Atorvastatin Calcium (Atorvastatin Calcium 80 Mg Tablet) 80 mg PO BEDTIME JAYA Calcium Carbonate (Calcium Carbonate 750 Mg Tab.Chew) 750 mg PO Q4H PRN PRN Reason: Heartburn Magnesium Hydroxide (Milk Of Magnesia 30 Ml Oral.Susp) 30 ml PO DAILY PRN PRN Reason: Constipation Melatonin (Melatonin 3 Mg Tablet) 6 mg PO BEDTIME PRN PRN Reason: Insomnia Nicotine (Nicotine 21 Mg Patch.Td24) 21 mg TRANSDERMA DAILY [facility] Last Admin: 12/01/24 08:24 Dose: Not Given Sodium Chloride (0.9 % Sodium Chloride Flush 3 Ml Syringe) 3 ml IVFLUSH QSHIFT [facility] Last Admin: 12/01/24 09:04 Dose: 3 ml Home Medications ?Medication ?Instructions ?Recorded ?Confirmed ?Last Taken ?Type No Known Home Meds 11/30/24 11/30/24 Unknown History Physical Exam Vital Signs: Vital Signs: Last Vital Signs Temp 98.4 F 12/01/24 11:00 Pulse 57 03/31/25 11:00 Resp 20 12/01/24 11:00 BP 129/60 12/01/24 11:00 Pulse Ox 94 12/01/24 11:00 O2 Del Method Room Air 12/01/24 11:00 BMI result Body Mass Index 23.2 Neuro: Other: She is alert and awake with slightly decreased spontaneity and fluency of speech. She was able to comprehend and answer questions. She did not know where she was. She was able to recognize her daughter. She was following one-step commands. Face was symmetrical. Visual diaz are full. There was no obvious focal weakness but she fell somewhat weak on the right side. Plantars were flexor. Speech was normal. Results Labs 11/30/24 15:49 11/30/24 15:49 Labs: Short CBC 11/30/24 Range/Units 15:49 WBC 19.8 H (4.8-10.8) X10*3/uL Hgb 14.2 (12.0-16.0) g/dl Hct 41.6 (37.0-47.0) % Plt Count 286 (160-400) X10*3/uL BMP 11/30/24 15:49 Sodium 143 Potassium 3.7 Chloride 107 Carbon Dioxide 25 BUN 18 H Creatinine 0.75 Calcium 9.5 Urine 11/30/24 Range/Units 16:56 Urine Color Yellow Urine Appearance Clear Urine pH 7.0 (5.0-9.0) Ur Specific [place] >= 1.030 H (1.005-1.025) Urine Protein Negative (Neg-Trace) mg/dL Urine Glucose (UA) Negative (Negative) mg/dL Brain MRI revealed an acute patchy left middle cerebral artery area cerebral infarction with [id number] underlying cerebral atrophy CTA of brain did not reveal any vascular lesion Assessment and Plan (1) CVA (cerebral vascular accident): Qualifiers: CVA mechanism: embolism Precerebral and cerebral artery: middle cerebral artery Laterality of affected vessel: left Qualified Code(s): 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 Likely cause is cardiac source of embolism. My recommendation is to put her on anticoagulation and have proper testing for atrial fibrillation. I had detailed discussion with the daughter explaining the problem and investigations including management. Procedures Date of Service Date of Service: 12/01/24
--- NOTE | 2024-12-01 15:16 | MHC.CM.PN ---
CM met with pt and family to discuss DC plan. Later let them know which [facility] accepted, pt. would like to go to [facility], they were updated on [facility].
--- NOTE | 2024-12-01 15:26 | MHC.SLORD ---
Speech Language Pathology Order Status: Pt sleeping, care procedures ongoing. MUFFLER TENDER to assess cognitive/linguistic functioning 12/02/24. MUFFLER TENDER provided information to pt daughter, who agreed with planned assessment.
[2024-12-01] MEDS: Apixaban 2.5 MG TABLET PO (20:31)
[2024-12-01] MEDS: Atorvastatin Calcium 80 MG TABLET PO (20:34)
--- NOTE | 2024-12-02 | ECG_ITS ---
Test Reason : tachycardia Blood Pressure : */* mmHG Vent. Rate : 64 BPM Atrial Rate : 64 BPM P-R Int : 214 ms QRS Dur : 86 ms QT Int : 404 ms P-R-T Axes : 71 54 47 degrees QTcB Int : 416 ms Sinus rhythm with 1st degree A-V block with occasional Premature ventricular complexes Left atrial enlargement Borderline ECG When compared to the previous EKG of 30 november 2024, no significant changes Referred By: Summer Schmid Electronically Signed By: TAYA JACOBSEN
[2024-12-02 03:35] VITALS: BP 137/61; PULSE 67; RESP 16; TEMP 36.4; O2SAT 93
[2024-12-02 06:11] LABS: Hemoglobin 12.7 g/dl (12.0-16.0); Mean Corpuscular HGB Conc 33.4 g/dl (31.0-35.0); Mean Corpuscular Hemoglobin 29.3 pg (27.0-33.0); Mean Corpuscular Volume 87.8 fL (80.0-98.0); Mean Platelet Volume 12.3 fL (9.4-12.3); Platelet Count 232 X10*3/uL (160-400); Red Blood Count 4.33 X10*6/uL (4.20-5.50); Red Cell Distribution Width 14.1 % (11.0-16.0); White Blood Count 9.7 X10*3/uL (4.8-10.8)
[2024-12-02 06:28] LABS: Anion Gap 12 (12-20); Blood Urea Nitrogen 14 mg/dL (9-16); Carbon Dioxide 25 mmol/L (22-29); Chloride 106 mmol/L (96-108); Creatinine Clr Calc Pharmacy 47.4; Estimated Glomerular Filt Rate > 60; Glucose Random 98 mg/dL (60-115); Potassium 3.4 mmol/L (3.3-5.1); Sodium 140 mmol/L (135-145)
[2024-12-02 07:16] VITALS: BP 160/80; PULSE 63; RESP 18; TEMP 36.5; O2SAT 95
[2024-12-02] MEDS: Apixaban 2.5 MG TABLET PO (08:11)
[2024-12-02] MEDS: Acetaminophen 325 MG TABLET 650 MG PO (08:11)
[2024-12-02] MEDS: 0.9 % Sodium Chloride Flush 3 ML SYRINGE IVFLUSH (08:11)
--- NOTE | 2024-12-02 10:37 | MHC.CM.PN ---
Pt is medically cleared for discharge to [facility] acute rehab today, she will transport there via BLS/[facility], pt and her daughter Oumou present at bedside aware and in agreement with discharge plan.
[2024-12-02 11:12] VITALS: BP 112/57; PULSE 53; RESP 18; TEMP 36.4; O2SAT 92
--- NOTE | 2024-12-02 11:50 | MHC.SP.ADU ---
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 Brain TIA IMPRESSION: Acute ischemic infarct of the left basal ganglia involving the caudate and putamen as well as multiple scattered small foci of acute ischemic infarcts within the left frontal lobe, concerning for embolic etiology. No acute intracranial hemorrhage. Moderate periventricular and subcortical chronic microvascular ischemic changes. Medical History: Other: Medication List: Recent Hospitalizations: Respiratory Needs: Room Air Patient Orientation: Alert & Oriented x 4 Social History: Employment Status: unknown Highest level of education obtained: unknown Current Living Situation: [facility] Assistive Devices in use: unknown Comment: Past Speech Language Therapy: None reported. Daughter is RUSTIC TERRAZZO SETTER. Other Therapies Seen in Current Calendar Year: Unknown Other: Swallowing History: Dysphagia Specific: Comments: Accurately answered orientation questions about name, date, situation, and place. Gave incorrect response to age (89 vs. 89). Pre-eval Risk for Aspiration: Reduced Cognition Pre-evaluation Dietary Consistencies: Regular Pre-eval Liquid Intake: Thin Pre-eval Medication Intake: Whole with Liquid Reported Speech, Language, Cognition difficulties: Memory Cognition Assessment Speech Production: Within Functional Limits Informal Voice Assessment: Voice Loudness: Normal Voice Nasal Resonance: Normal Voice Oral Resonance: Normal Voice Phonatory-based Quality: Normal Voice Pitch: Normal Voice Other Observations: Clinical Impression: Clinicial Observations: Tests of Cognition: Cognition screened on this date. During conversation with this clinician, pt reports her current memory status as awful and says she has difficulty remembering where I am. Orientation: Pt accurately provided orientation to location; it is possible she may have appropriately used resources in hospital room. Pt had some difficulty with date. She used the white board in the room to accurately state 12/02/24 as the date. When asked what month it was, pt responded the 4th month. When prompted to name the month, she then stated Linda ; which is the name of this RUSTIC TERRAZZO SETTER. Automatic sequencing: Pt independently counted 1-20 and named days of week. Pt required minimal-moderate support to name months. RUSTIC TERRAZZO SETTER cued pt with September...October... then pt was able to name all other 10 months accurately. Auditory word recognition: 12/05 Auditory comprehension: 07/14 (i.e. are your eyes blue, are you sitting in a chair) Sentence completion: 05/13. Pt completed sweep the ___ with table. Memory capacity (digits): Accurately recalled 3-5 digits. 1-step commands: /6 (i.e. raise your hand, shut your eyes) Responsive namin/10. Pt had difficutly with what do you do with a razor and what do you use to cut paper? Pt benefitted by sentence completion cues and gesutures to answer accurately. Impressions and Recommendations Summary: Impact on Daily Function/Activity Limitations: Daily Activities: Moderate Interpersonal Interactions: Moderate Community: Moderate Prognosis for Improvement: Fair Recommendation for Speech Therapy: Outpatient Speech Therapy Pt screened for cognition by RUST[employer] TERRAZZO SETTER. Pt demonstrates with moderate cognitive deficit marked by difficulty with delayed memory, orientation questions, automatic sequences, and semantic fluency tasks. Pt presents with perseveration intermittently. She benefits from sentence completion cues (i.e. the grass is ____, roses are we buy stamps at the ____). She performed WFL on tasks pertaining to auditory comprehension, sentence completion, auditory word recognition, responsive naming, immediate memory recall (3 words, 5 digits), one-step commands, and repetition. Pt intermittently presented with perseveration. For exmpale, when asked what do you do with a razor, she answered buy new stamps? The previous question had been where can you get stamps? Recommend further evaluation at acute rehab. May benefit from goals related to communication partner education and strategies, rehabilitative/compensatory goals for orientation, and delayed memory. Patient Education: Completed: Yes Patient/Caregiver Education: Described Results of Evaluation Patient expressed understanding of evaluation Family/Caregivers expressed understanding of results Women'S Ministry Director Clinican/Clinical Fellow: No Supervisory Statement: N/A Speech Language Pathologist: Linda Arguello M.A., [facility]-[employer]
--- NOTE | 2024-12-02 11:55 | P.DS_ITS ---
DS: Providers Provider Date of Service: 12/02/24 Date of admission: 11/30/24 20:12 Date of discharge: 12/02/24 Primary care physician: Roxanna Londono NP Consults: 11/30/24 20:12 Consult to Neurology Routine Consulting Provider: Sherice Whitaker Reason for consultation: AMS; ?CVA DS: Diagnosis Discharge Diagnosis (1) CVA (cerebral vascular accident): Status: Acute DS: Summary Hospital Course Hospital Course: from initial hpi: 89-year-old female with no significant past medical history presented to the hospital with a chief complaint of fall. Most of the history obtained from the patient and patient's daughter at bedside. Patient is alert and oriented x2 at the time of my interview. But answers questions fairly okay except he is intermittently forgetful. Patient daughter mentioned that patient had a fall today at the assisted living distally with the patient is living. Fall was unwitnessed. But reportedly patient probably had a head strike. Patient denies any loss of consciousness. Patient denies any neck pain or back pain. Denies any hip pain. Patient denies any chest pain or palpitations. Denies any fever chills cough or sputum production. Denies any GI symptoms. Review of all other systems is negative except mentioned above ER course: Per ER physician, patient on presentation appeared to be mildly confused; blood pressure was stable; musculoskeletal exam benign. On neurological exam there was mild right-sided pronator drift-questionable; CT head and CT angio head and neck were done which showed acute findings. Patient had low-grade temperature 99 degrees F. ESR CRP and procalcitonin negative. Chest x-ray showed no acute findings. UA negative. But not a mild leukocytosis-presumed to be reactive hospital course: Patient was admitted for following confusion on MRI found to have acute CVA which was concerning for cardioembolic source. Was seen by Neurology recommended starting anticoagulation. Patient started on low-dose apixaban based on age and weight, also started on statin. Was seen by Physical therapy and recommended acute rehab to which patient will be discharged expected require less than 30 days. Time Attestation Discharge Coordination Time (in mins): 34 Quality: Safe Use of Opioids Does Pt have an Active Cancer Diagnosis on the Problem List?: No Quality: Stroke Does the patient have a stroke diagnosis?: Yes Reason for No Anti-thrombotic at DC: Drug treatment not indicated Reason for No Anticoagulant at DC: N/A - Med Ordered Reason Not Initiating IV-Tpa: Drug treatment not indicated Reason for No Anti-thrombotic by Day Two: N/A - Med Ordered Reason for No Statin at DC: N/A - Med Ordered Physical Exam Vital Signs: Vital Signs: Last Vital Signs Temp 97.6 F 12/02/24 11:12 Pulse 53 12/02/24 11:12 Resp 18 12/02/24 11:12 BP 112/57 L 12/02/24 11:12 Pulse Ox 92 12/02/24 11:12 O2 Del Method Room Air 12/02/24 11:12 BMI result Body Mass Index 23.2 Neuro: Other: She is alert and awake with slightly decreased spontaneity and fluency of speech. She was able to comprehend and answer questions. She did not know where she was. She was able to recognize her daughter. She was following one- step commands. Face was symmetrical. Visual diaz are full. There was no obvious focal weakness but she fell somewhat weak on the right side. Plantars were flexor. Speech was normal. DS: Data Data Completed and Pending Labs on day of discharge: Laboratory Results - last 24 hr 12/02/24 05:37 WBC 9.7 RBC 4.33 Hgb 12.7 Hct 38.0 MCV 87.8 MCH 29.3 MCHC 33.4 RDW 14.1 Plt Count 232 MPV 12.3 Absolute Nucleated RBC 0.000 Nucleated RBC % (auto) 0.0 Sodium 140 Potassium 3.4 Chloride 106 Carbon Dioxide 25 Anion Gap 12 BUN 14 Creatinine 0.66 Estim Creat Clear Calc 47.4 Estimated GFR > 60 Random Glucose 98 Calcium 9.0 Preliminary micro results at discharge 11/30/24 17:11 Blood Culture - Preliminary Blood - Venous No growth after 24 hours. 11/30/24 16:47 Blood Culture - Preliminary Blood - Venous No growth after 24 hours. Discharge Plan Discharge Anticipated Discharge Date/Time: 12/02/24 11:53 Patient Disposition: Xfer Inpatient Rehab Fac Discharge Diagnosis: cva Referrals: [facility] [Outside] - 1 Week Roxanna Londono NP [Primary Care Provider] - 1 Week Discharge Medications: New Eliquis 2.5 mg Tablet 2.5 mg PO BID Qty: 0 0RF atorvastatin 80 mg Tablet 80 mg PO BEDTIME Qty: 0 0RF Discharge Orders: Discharge Order (Routine); Ordered 12/02/24 Ordered By: Rusty Ga Diet: Advance to usual diet Activity on Discharge: As tolerated Stand Alone Forms: Patient Portal Discharge page Print Language: Unable To Collect Care Plan Goals: recovery Health Concerns: cva Plan of Treatment: eliquis, statin, rehab Assessment: see above
--- NOTE | 2024-12-02 13:04 | MHC.STROKE ---
Met with patient and daughter in room 470. Pt awake, alert, oriented, engaging in conversation with daughter and myself. Stroke Education reviewed. Stroke Pamphlet provided. Risk factors reviewed including medical history, medications, diet, activity, and social history. All questions answered. Plan is for discharge to acute rehab. Pt and daughter agreeable to plan. Will continue to assist as needed.
== END 2024-12-02 14:13 | DRG 66 ==
LOC: HO.ED 19:40 → HO.EDOVER 20:20 → HO.IMC 12-01 05:47
PROVIDERS: Internal Medicine; Admitting Provider Hospitalist; Emergency Provider Emergency Medicine; PCP Nurse Practitioner Adult Health; Visit Provider Internal Medicine
DX: I63.412 Cerebral infarction due to embolism of left middle cerebral artery (principal); R29.703 NIHSS score 3; Z20.822 Contact with and (suspected) exposure to COVID-19; Z66 Do not resuscitate; E86.0 Dehydration
CPT/HCPCS: 0241U; 36415; 70450; 70496; 70498; 70551; 71045; 73502; 80048; 80061; 81003; 82947; 83605; 83735; 83880; 84145; 84484; 85025; 85027; 85610; 85730; 86140; 87040; 93005; 93306; 96125; 97112; 97116; 97162; 97166; 97530; 97535; 99285; J7120; Q9957; Q9967

== ENCOUNTER → 2024-11-30 15:46 | Outpatient (BNV) | payer MEDICARE, SELFPAY | PROVIDERS: Emergency Provider Emergency Medicine; Visit Provider Radiology Diagnostic Radiology | DX: I67.82 Cerebral ischemia (principal); I69.314 Frontal lobe and executive function deficit following cerebral infarction | CPT/HCPCS: 70450; 70496; 70498; 70551; 71045; 73502 ==

== ENCOUNTER → 2024-11-30 15:46 | Outpatient (BNV) | payer MEDICARE, SELFPAY | PROVIDERS: Admitting Provider Hospitalist; Emergency Provider Emergency Medicine; PCP Nurse Practitioner Adult Health; Visit Provider Internal Medicine | DX: R94.31 Abnormal electrocardiogram [ECG] [EKG] (principal); I44.0 Atrioventricular block, first degree; I49.3 Ventricular premature depolarization | CPT/HCPCS: 93010 ==

== ENCOUNTER 2024-11-30 20:12 | Outpatient (BNV) | payer MEDICARE, SELFPAY | END 2024-12-01 07:00 | PROVIDERS: Admitting Provider Hospitalist; Emergency Provider Emergency Medicine; PCP Nurse Practitioner Adult Health; Visit Provider Internal Medicine | DX: I42.8 Other cardiomyopathies (principal); I35.8 Other nonrheumatic aortic valve disorders | CPT/HCPCS: 93306 ==

== ENCOUNTER 2024-11-30 20:12 | Outpatient (BNV) | payer MEDICARE, SELFPAY | END 2024-12-02 04:49 | PROVIDERS: Admitting Provider Hospitalist; Emergency Provider Emergency Medicine; PCP Nurse Practitioner Adult Health; Visit Provider Internal Medicine | DX: I44.0 Atrioventricular block, first degree (principal); I49.3 Ventricular premature depolarization; I51.7 Cardiomegaly | CPT/HCPCS: 93010 ==

== ENCOUNTER → 2024-11-30 20:12 | Outpatient (BNV) | payer MEDICARE, SELFPAY | PROVIDERS: Admitting Provider Hospitalist; Emergency Provider Emergency Medicine; PCP Nurse Practitioner Adult Health; Visit Provider Psychiatry & Neurology Neurology | DX: I63.412 Cerebral infarction due to embolism of left middle cerebral artery (principal) | CPT/HCPCS: 99222 ==

== ENCOUNTER → 2024-11-30 20:12 | Outpatient (BNV) | payer MEDICARE, SELFPAY | PROVIDERS: Admitting Provider Hospitalist; Emergency Provider Emergency Medicine; PCP Nurse Practitioner Adult Health; Visit Provider Hospitalist | DX: R41.82 Altered mental status, unspecified (principal); I63.9 Cerebral infarction, unspecified | CPT/HCPCS: 99222; 99232; 99239 ==

== ENCOUNTER 2024-12-16 14:46 | Outpatient (REF) | payer MEDICARE, SELFPAY ==
--- NOTE | ~2024-12-16 | CT_ITS ---
EXAMINATION: CT HEAD WITHOUT CONTRAST CLINICAL INFORMATION: Weakness COMPARISON: CT a head and neck 11/30/2024. MRI brain 11/30/2024. TECHNIQUE: Contiguous axial imaging was performed from the skull base to vertex without intravenous administration of contrast. This CT examination was performed using dose optimization techniques as appropriate, variously including the following: *Automated exposure control *Adjustment of mA and/or kV according to patient size (this includes techniques or standardized protocols for targeted exams where dose is matched to indication/reason for exam; i.e. extremities or head) *Use of iterative reconstruction technique DLP: 762 mGy/cm. FINDINGS: There is no acute intra-axial, extra-axial bleed, masses or midline shift. There is no acute infarction in evolution. There is diffuse periventricular hypodensity in both cerebral hemispheres without mass effect or edema. The lateral ventricles are symmetrical but moderately enlarged with mild prominence of cortical sulci. Bone windows reveal no calvarial abnormality. There is no scalp soft tissue abnormality. Bilateral paranasal sinuses and mastoid air cells are well-aerated. CT/CT head/brain wo IV con IMPRESSION: No acute intracranial process seen. Electronically signed by: Marquez Barraza MD 12/16/2024 04:32 PM EDT
== END 2024-12-16 14:47 | disposition home or self-care (01) ==
LOC: HO.CT 14:46
PROVIDERS: Visit Provider Internal Medicine
DX: R53.1 Weakness (principal)
CPT/HCPCS: 70450

== ENCOUNTER → 2024-12-16 14:57 | Outpatient (BNV) | payer MEDICARE, SELFPAY | PROVIDERS: Visit Provider Radiology Diagnostic Radiology | DX: R53.1 Weakness (principal) | CPT/HCPCS: 70450 ==

== ENCOUNTER 2025-05-11 14:47 | Outpatient (AMB) | payer MEDICARE, OTHER, SELFPAY ==
[2025-05-11 14:54] VITALS: BP 110/60; PULSE 92; TEMP 36.3; O2SAT 98
--- NOTE | 2025-05-11 14:54 | AM.OFFWIN_ITS ---
Intake Vital Signs 05/11/25 14:54 Height 5 ft 2 in BMI Reason not done Patient refused/unable BP 110/60 Blood Pressure Location Lt brachial Position Sitting Pulse 92 Pulse Source Pulse Oximeter Temp 97.3 F Temp Source Oral Pulse Oximetry (%) 98 Oxygen Delivery Method Room Air Intake Visit Reasons: EP-rt side ribs pain, Left wrist pain Intake Note: patient is here for left wrist swelling, redness, denies any fall or injury Patient Tobacco Use Status: Never used Tobacco Allergies No Known Allergies Allergy (Verified 05/11/25 14:54) Do you need a note to return to daycare/school/sports/work: No HPI HPI Comments History of Present Illness Details 89 y/o Female patient who presents to [facility] walk in clinic with c/o Left wrist Swelling and painful for 2 days now. Denies any trauma or injury to the wrist. [facility] Medical History (Updated 05/11/25 @ 15:37 by Oksana Whitmore NP) Left wrist sprain CVA (cerebral vascular accident) Social History Household Members: None Housing: Assisted Living Facility Patient Tobacco Use Status: Never used Tobacco service: No Review of Systems Const All systems reviewed & are unremarkable except as noted in HPI and below Physical Exam Vital Signs: Last Vital Signs Temp 97.3 F 05/11/25 14:54 Pulse 92 05/11/25 14:54 BP 110/60 05/11/25 14:54 Pulse Ox 98 05/11/25 14:54 Oxygen Delivery Method Room Air 05/11/25 14:54 Const General: no acute distress; No comfortable Nutritional Appearance: thin Orientation/consciousness: patient oriented x3 Limitations: wheelchair Neuro General: patient oriented x3, gait normal and moves all extremities Extrem Left upper extremity: hand Details: normal capillary refill, tenderness Location: of the dorsal hand, normal ROM of fingers, swelling Location: of the dorsal hand Location: proximally and ecchymosis Location: of the dorsal hand Psych Speech and movement: Normal speech and movement present Assessment & Plan Assessment & Plan (1) Left wrist sprain: Code(s): S63.502A - Unspecified sprain of left wrist, initial encounter Qualifiers: Encounter type: initial encounter Plan: Ordered Xray Left wrist Wrapped Hand/wrist with Hang bandage NSAIDs for pain relief. Orders: Orders XR wrist LT min 3V Today S63.502A - Unspecified sprain of left wrist, initial encounter Medications: New acetaminophen 1,000 mg (2 x 500 mg) PO Q6H 20 caps 0RF pain S63.502A - Unspecified sprain of left wrist, initial encounter prednisone 20 mg PO DAILY 7 tabs 0RF S63.502A - Unspecified sprain of left wrist, initial encounter Coding Level of Care Code Est Pt Level 4 (16643) Diagnoses Left wrist sprain S63.502A Encounter type: initial encounter Time Spent (min) 20
--- OUTSIDE RECORDS SUMMARY | 2025-05-11 17:08 | XMS_ITS | Encounter Summary ---
Author Organization [facility] Address [address] [address] Phone Care Team Providers Care Engineering Production Liaison Name Role Phone Roxanna Londono NP Primary Care Provider [phone] Ruby Mims OD Unavailable [phone] Ivett Hodges MD Unavailable Roxanna Londono NP Unavailable [phone] Reason for Visit * Reason Comments Medication Refill Eliquis Encounter Details Date Type Department Care Team (Late st Contact Info) Description 04/09/2025 Refill [facility] 14 [facility] [address] [place] [address] Roxanna Londono NP 14 [facility] [address] [place], [place] [id number] [email or web address] Medication Refill (Eliquis) Social History Tobacco Use Types Packs/Day Years Used Date Smoking Tobacco: Never Smokeless Tobacco: Never Alcohol Use Standard Drinks/Week Comments No 0 (1 standard drink = 0.6 oz pur e alcohol) Home Health Assessment: Transportation Answer Date Recorded Lack of Transportation (Medical) No 12/23/2024 Lack of Transportation (Non-Medical) No 12/23/2024 Patient Unable or Declines to Respond No 12/23/2024 Education Answer Date Recorded Are you interested in more education? Not on esther e 01/14/2023 Are you concerned about learning? Not on file 01/14/2023 No 01/14/2023 No 01/14/2023 Digital Access Answer Date Recorded No 01/24/2023 No 01/24/2023 Reliable internet access at home? Not on file 01/24/2023 Device with a working camera? Not on file Intimate Partner Violence Answer Date R ecorded Denied Basic Needs Not on file 03/19/2025 In the past 12 months have y ou been in a relationship with a person who hurts, threatens, or tries to control you? No 03/19/2025 Worried food would run out Not on file 03/19 In the past 12 months have y ou been in a relationship with a person who hurts, threatens, or tries to control you? No 03/19/2025 Comments Unknown Sex and Gender Information Value Date Recorded Sex Assigned at Female 09/13/2021 8:33 PM EST Legal Sex Female 5:54 PM EST Gender Identity Female 09/13/2021 8:33 PM EST Sexual Orientation Straight 09/13/2021 8: 33 PM EST documented as of this encounter Progress Notes * Linda Rocha CMA - 04/09/2025 8:40 AM EDT IMPORTANT - At least one Rx mismatch identified. Original(s) may be discontinued, , or different strength/form. Review required. Rx Care Gap Status - Instructions for Clinical Staff (prescriber discretion applies): > Mismatch review guide > At least one request does not meet full criteria. Specifics below. > Labs due: Please remind patient. > No new orders needed. Labs due for pended Rx Requests: BMP Other labs due based on Medication List: Lipid panel Visit Info Last visit: 03/19/2025 Roxanna Londono NP - Internal Medicine [facility] > Requested f/u: Not specified Upcoming visit: 03/22/2026 Roxanna Londono NP - Internal Medicine [facility] ACTIONS TAKEN BY Linda Rocha CMA - Criteria met. Direct Oral Anticoagulant (DOAC) Rx Protocol - apixaban Rx mismatch - Original discontinued, , or different strength/form. Criteria for reference: Visit in the past 14 months: Yes Clinical criteria: - BMP within past year: None (has active order) Lab Results Component Value Date SODIUM 141 03/19/2024 POTASSIUM 3.9 03/19/2024 CHLORIDE 101 03/19/2024 CO2 27 03/19/2024 BUN 12 03/19/2024 CREATININE 0.60 03/19/2024 EGFR 87 03/19/2024 Health Maintenance Labs Due / Due Soon Topic Date Due CREATININE LEVEL 03/19/2025 documented in this encounter Plan of Treatment Upcoming Encounters Date Type Department Care Team (Late st Contact Info) Description 05/15/2025 8:30 AM EDT Office Visit [facility] Neurology [address] [place] [phone] Shaw Ogden MD [address] [place] [address], [address] [place] [phone] luis 03/22/2026 1:10 PM EDT Office Visit [facility] Internal Medicine [address] [address] Roxanna Londono NP [address] [place] [address] [email or web address] documented as of this encounter Visit Diagnoses Not on filedocumented in this encounter Additional Health Concerns Assessment Noted Time PHQ-2 Depression Total Score: 2 03/19/20 25 11:48 AM EDT documented as of this encounter Care Teams Engineering Production Liaison Relationship Specialty Start Date End Date Roxanna Londono NP [address] [place] [phone] [email or web address] PCP - General 09/06/17 Ruby Mims OD [address] [place] [phone] Optometry 06/10/18 Ivett Hodges MD [address] [place] [phone] Dermatology 06/10/18 Roxanna Londono NP [address] [place] [address] [email or web address] Insurance Assigned Provider 12/07/24 documented as of this encounter Additional Source Comments The information contained in this document represents components of the legal health record. It is not the complete legal health record.[facility]
--- OUTSIDE RECORDS SUMMARY | 2025-05-11 17:08 | XMS_ITS | Encounter Summary ---
Author Organization [facility] Address [address] [address] Phone Care Team Providers Care Pipe Connector Name Role Phone Roxanna Londono NP Primary Care Provider Ruby Mims OD Unavailable [phone] Ivett Hodges MD Unavailable Francois Solano MD Unavailable [phone] Roxanna Londono NP Unavailable [phone] Encounter Details Date Type Department Care Team (Latest Contact Info) Description 08/07/2019 Transcribe Orders [facility] Laboratory [address] [address] Danielle Hurst NP [address] [address] Allergic rhinitis due to pollen, unspecified seasonality (Primary Dx); Nutritional and metabolic cardiomyopathy; Esophagitis, unspecified Social History Tobacco Use Types Packs/Day Years Used Date Smoking Tobacco: Never Smokeless Tobacco: Never Alcohol Use Standard Drinks/Week Comments No 0 (1 standard drink = 0.6 oz pur e alcohol) Comments Unknown Sex and Gender Information Value Date Recorded Sex Assigned at Female 09/13/2021 8:33 PM EST Legal Sex Female 5:54 PM EST Gender Identity Female 09/13/2021 8:33 PM EST Sexual Orientation Straight 09/13/2021 8: 33 PM EST documented as of this encounter Plan of Treatment Upcoming Encounters Date Type Department Care Team (Late st Contact Info) Description 05/15/2025 8:30 AM EDT Office Visit [facility] Neurology [address] [place] [address] Shaw Ogden MD 22 [facility], [address]nd [place] [address] [email or web address] 03/22/2026 1:10 PM EDT Office Visit [facility] Internal Medicine 14 [facility] [address] [place] [address] Roxanna Londono NP 14 [facility] [address] [place] [address] [email or web address] documented as of this encounter Results * Free T4 (08/07/2019 9:15 AM EST) FREE T4 1.5 0.9 - 1.7 ng/dL [facility] Blood 08/07/2019 9:15 AM EST 08/07/2019 9:20 AM EST us Danielle Hurst ACCOUNT SUPPORT SPECIALIST LAB BLOOD ORDERABLES Final Resul t Performing Organization Address City/[facility]/ZIP Co de Phone Number [address] [address] * Free T3 (08/07/2019 9:15 AM EST) FREE T3 2.8 2.0 - 4.4 pg/mL [facility] Blood 08/07/2019 9:15 AM EST 08/07/2019 9:20 AM EST us Danielle Hurst ACCOUNT SUPPORT SPECIALIST LAB BLOOD ORDERABLES Final Resul t Performing Organization Address City/[facility]/ZIP Co de Phone Number [address] [address] * TSH (08/07/2019 9:15 AM EST) TSH 3.62 0.27 - 4.20 uIU/mL [facility] Blood 08/07/2019 9:15 AM EST 08/07/2019 9:20 AM EST us Danielle Hurst ACCOUNT SUPPORT SPECIALIST LAB BLOOD ORDERABLES Final Resul t [facility] [address] [place] [address] documented in this encounter Visit Diagnoses Diagnosis Allergic rhinitis due to pollen, unspecified seasonality- Primary Nutritional and metabolic cardiomyopathy Esophagitis, unspecified documented in this encounter Additional Health Concerns Assessment Noted Time PHQ-2 Depression Total Score: 0 06/05/20 19 11:01 AM EDT documented as of this encounter Care Teams Pipe Connector Relationship Specialty Start Date End Date Roxanna Londono NP [address] [place] [address] [email or web address] PCP - General 09/06/17 Ruby Mims OD [address] [place] [phone] Optometry 06/10/18 Ivett Hodges MD [address] [place] [phone] Dermatology 06/10/18 Francois Solano MD [address] [place] [address] Insurance Assigned Provider 12/10/1909/10/21 Roxanna Londono NP [address] [place] [phone] Insurance Assigned Provider 12/07/24 documented as of this encounter Additional Source Comments The information contained in this document represents components of the legal health record. It is not the complete legal health record.[facility]
--- OUTSIDE RECORDS SUMMARY | 2025-05-11 17:08 | XMS_ITS | Encounter Summary ---
Author Organization [facility] Address [address] [address] Phone Care Team Providers Care Desk Pen Set Assembler Name Role Phone Roxanna Londono NP Primary Care Provider [phone] Ruby Mims OD Unavailable [phone] Ivett Hodges MD Unavailable Roxanna Londono NP Unavailable Reason for Visit * Reason Onset Date Comments requesting call back 05/11/2025 Encounter Details Date Type Department Care Team (Late st Contact Info) Description 05/11/2025 Telephone [facility] 14 [facility] [address] [place] [address] Roxanna Londono NP 14 [facility] [address] [place] [phone] [email or web address] requesting call back Social History Tobacco Use Types Packs/Day Years Used Date Smoking Tobacco: Never Smokeless Tobacco: Never Alcohol Use Standard Drinks/Week Comments No 0 (1 standard drink = 0.6 oz pur e alcohol) Home Health Assessment: Transportation Answer Date Recorded Lack of Transportation (Medical) No 04/15/2025 Lack of Transportation (Non-Medical) No 04/15/2025 Patient Unable or Declines to Respond No 04/15/2025 Education Answer Date Recorded Are you interested [...] as of this encounter Progress Notes * Savanna Calero RN - 05/11/2025 3:51 PM EDT Call returned to [facility] Ed. No answer. Left message to call back. * Denise Ovalle - 05/11/2025 2:03 PM EDT Ed LMOM in regards to patient. Said he needed to speak with someone about his and it doesn't need to be Roxanna. He can be reached @ [phone] documented in this encounter Plan of Treatment Upcoming Encounters Date Type Department Care Team (Late st Contact Info) Description 05/15/2025 8:30 AM EDT Office Visit [facility] Neurology [address] [place] [address] Shaw Ogden MD 22 [facility], [address] [place] [address] luis 03/22/2026 1:10 PM EDT [facility] [address] [address] Roxanna Londono NP [address] [address] documented as of this encounter Visit Diagnoses Not on filedocumented in this encounter Additional Health Concerns Assessment Noted Time PHQ-2 Depression Total Score: 2 03/19/20 11:48 AM EDT documented as of this encounter Care Teams Desk Pen Set Assembler Relationship Specialty Start Date End Date Roxanna Londono NP [address] [address] PCP - General 09/06/17 Ruby Mims OD [address] [place] [phone] Optometry 06/10/18 Ivett Hodges MD [address] [place] [phone] Dermatology 06/10/18 Roxanna Londono NP [address] [place] [phone] Insurance Assigned Provider 12/07/24 documented as of this encounter Additional Source Comments The information contained in this document represents components of the legal health record. It is not the complete legal health record.[facility]
--- OUTSIDE RECORDS SUMMARY | 2025-05-11 17:08 | XMS_ITS | Encounter Summary ---
Author Organization [facility] Address [address] [address] Phone Care Team Providers Care Ferryboat Captain Name Role Phone Roxanna Londono NP Primary Care Provider [phone] Ruby Mims OD Unavailable [phone] Ivett Hodges MD Unavailable [phone] Roxanna Londono NP Unavailable [phone] Reason for Visit * Reason Onset Date Comments ankle and leg pain 02/11/2025 Encounter Details Date Type Department Care Team (Late st Contact Info) Description 02/11/2025 Telephone [facility] Internal Medicine 14 [facility] [address] [place] [address] Roxanna Londono NP 14 [facility] [address] [place] [address] [id number] [email or web address] ankle and leg pain Social History Tobacco Use Types Packs/Day Years [...] ecorded Denied Basic Needs Not on file 03/03/2024 In the past 12 months have y ou been in a relationship with a person who hurts, threatens, or tries to control you? No 03/03/2024 Worried food would run out Not on file 03/03 In the past 12 months have y ou been in a relationship with a person who hurts, threatens, or tries to control you? No 03/03/2024 Comments Unknown Sex and Gender Information Value Date Recorded Sex Assigned at Female 09/13/2021 8:33 PM EST Legal Sex Female 5:54 PM EST Gender Identity Female 09/13/2021 8:33 PM EST Sexual Orientation Straight 09/13/2021 8: 33 PM EST documented as of this encounter Progress Notes * Jamila Vazquez, RN - 02/11/2025 4:02 PM EDT Spoke with patient's daughter She states that she is not the best historian these days PT is having a hard time figuring out what this pain could be She states that it is the right lower leg, but she cannot determine if its the ankle, foot, or calfarea She is not point tender anywhere but she said she has pain when weight bearing It has been going on about 2 weeks It was right after wearing new slippers that werent very supportive Now she is back in sneakers but said its worsening Denies any swelling or change in color or temperature Wonders if maybe a clot Reviewed that without any swelling its probably a low likelihood but cannot rule it out Offered in office appointment It is difficult to get her to places these days Reviewed we can see her in office, could see if Roxanna would want imaging though it would be hard since she is not sure where the pain is located or we can refer to ortho She will call her sister who is local and discuss and get back to us Will review with Roxanna Londono * Anat Salinas - 02/11/2025 3:47 PM EDT Yohana pt daughter lm on the triage line PT is experiencing r side ankle leg pain, Physical therapist states it is with weight bearing and walking and has been going on for a few weeks. Yohana would like to f/u on how to proceed Central Support Business Continuity Specialist (Please do not reply to this user; this inbox is not monitored.) Thank you. documented in this encounter Plan of Treatment Upcoming Encounters Date Type Department Care Team (Late st Contact Info) Description 05/15/2025 8:30 AM EDT Office Visit [facility] Neurology [address] [place] [address] Shaw Ogden MD [address] [place] [address], [address] [place] [phone] luis 03/22/2026 1:10 PM EDT Office Visit [facility] Internal Medicine 14 [facility] [address] [place] [address] Roxanna Londono NP [address] [place] [phone] documented as of this encounter Visit Diagnoses Not on filedocumented in this encounter Additional Health Concerns Assessment Noted Time PHQ-2 Depression Total Score: 1 03/03/20 24 11:04 AM EDT documented as of this encounter Care Teams Ferryboat Captain Relationship Specialty Start Date End Date Roxanna Londono NP [address] [place] [address] PCP - General 09/06/17 Ruby Mims OD [address] [place] [address] Optometry 06/10/18 Ivett Hodges MD [address] [place] [address] Dermatology 06/10/18 Roxanna Londono NP [address] [place] [address] [address] [place] [address] [email or web address] Insurance Assigned Provider 12/07/24 documented as of this encounter Additional Source Comments The information contained in this document represents components of the legal health record. It is not the complete legal health record.[facility]
--- OUTSIDE RECORDS SUMMARY | 2025-05-11 17:08 | XMS_ITS | Clinical Summary ---
Author Organization [facility] Address [address] [address] Phone Care Team Providers Care Client Success Manager Name Role Phone Roxanna Londono NP Primary Care Provider [phone] Ruby Mims OD Unavailable [phone] Ivett Hodges MD Unavailable Roxanna Londono NP Unavailable Allergies Active Allergy Reactions Criticality Noted Date Comments Ciprofloxacin 12/23/2024 Pollen Extracts Unknown 10/18/2015 Sulfur Unknown 10/18/2015 Tomato 12/23/2024 Medications mecobalamin, vitamin B12, (B12 ACTIVE) 1,000 mcg Chew Take 1 tablet by mouth daily. 01/07/20 25 Active ascorbate calcium, vitamin C, (VITAMIN C, ASCORBATE CALCIUM,) 814 mg/gram Powd Take 500 mg by mouth daily. 01/07/20 25 Active COLOSTRUM, BOVINE ORAL Take 1 Scoop by mouth daily. 01/07/20 25 Active Lactobacillus acidophilus (PROBIOTIC ORAL) Take 1 Scoop by mouth daily. 01/07/20 25 Active vit F-pjycusvzm-alz flav,citrus (QUERCETIN COMPLEX) 500-225-33 mg Cap Take 2 capsules by mouth daily. 01/21/20 25 Active ELIQUIS 2.5 mg TAKE 1 TABLET(2.5 MG) BY MOUTH TWICE DAILY 180 tablet 04/09/20 25 Active atorvastatin (LIPITOR) 80 MG tablet Take 1 tablet (80 mg total) by mouth daily. 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 04/21/2025 Raynaud's phenomenon without gangrene 04/21/2025 Primary osteoarthritis of fi rst carpometacarpal joint of right hand 04/07/2024 Gait instability 06/03/2018 Vitamin B12 deficiency 06/03/2018 Chronic rhinitis 03/04/2018 Multiple chemical sensitivity syndrome 8 Resolved Problems Problem Noted Date Diagnosed Date Resolved Date Lyme disease 03/04/2018 06/03/2018 Encounters Date Type Department Care Team Description 05/11/2025 Telephone [facility] Internal Medicine [address] [address] Roxanna Londono NP requesting call back 04/29/2025 Refill [facility] Internal Medicine [address] [address] Roxanna Londono NP Medication Refill 04/17/2025 Telephone [facility] Internal Medicine [address] [address] Roxanna Londono NP Patient portal concerns 04/15/2025 1:15 PM EDT Home [facility] [address] [place] [address] Daisy Wilson CCC-VACATION PLANNER VACATION PLANNER OASIS DISCHARGE VISIT 04/15/2025 Episode Documentation Update [facility] [address] [place], [place] [phone] Paulette Sánchez 04/09/2025 Refill [facility] Internal Medicine 14 [facility] [address] [place] [address] Linda Rocha CMA Medication Refill (Atorvastatin) 04/09/2025 Refill [facility] Internal Medicine 14 [facility] [address] [place] [address] Roxanna Londono, MIC Medication Refill (Eliquis) 04/08/2025 1:15 PM EDT Home [facility] Visit [facility] [address] [place] [address] Daisy Wilson CCC-VACATION PLANNER VACATION PLANNER HOME VISIT 04/01/2025 1:15 PM EDT Home Care Visit [facility] [address] [place] [address] Daisy Wilson CCC-VACATION PLANNER VACATION PLANNER HOME VISIT 03/25/2025 1:15 PM EDT Home Care Visit [facility] [address] [place] [phone] Daisy Wilson CCC-VACATION PLANNER VACATION PLANNER HOME VISIT 03/19/2025 11:50 AM EDT Office Visit [facility] Internal Medicine 14 [facility] [address] [place] [address] Roxanna Londono, MIC Encounter for Medicare annual wellness exam (Primary Dx); Cerebrovascular accident (CVA) due to embolism of cerebral artery; Atrial fibrillation, unspecified type; Urinary incontinence in female; Multiple chemical sensitivity syndrome, sequela; Primary osteoarthritis involving multiple joints; Vitamin B12 deficiency; Raynaud's phenomenon without gangrene 03/18/2025 1:15 PM EDT Home Care Visit [facility] [address] [place] [address] Daisy Wilson CCC-VACATION PLANNER VACATION PLANNER TFA VISIT 03/11/2025 1:15 PM EDT Home [facility] Visit [facility] [address] [place] [address] Daisy Wilson CCC-VACATION PLANNER VACATION PLANNER HOME VISIT 03/03/2025 Episode Documentation Update [facility] [address] [place] [address] Zari Dewitt 03/02/2025 1:15 PM EDT Home Care Visit [facility] [address] [place] [phone] Daisy Wilson, CCC-VACATION PLANNER VACATION PLANNER HOME VISIT 03/02/2025 Episode Documentation Update [facility] [address] [place] [address] Zari Dewitt 02/23/2025 1:15 PM EDT Home Care Visit [facility] [address] [place] [phone] Daisy Wilson, CCC-VACATION PLANNER VACATION PLANNER HOME VISIT 02/20/2025 1:00 PM EDT [facility] [address] [place] [phone] Angeles Michelle, PT PT DISCIPLINE DISCHARGE VISIT 02/18/2025 8:30 AM EDT [facility] [address] [place] [phone] Angeles Michelle, PT PT HOME VISIT 02/16/2025 1:00 PM EDT Home [facility] [address] [place] [phone] Daisy Wilson, CCC-VACATION PLANNER VACATION PLANNER OASIS RECERTIFICATION/FUP 02/16/2025 Plan of Care Documentation [facility] [address] [place] [phone] 02/13/2025 12:00 PM EDT Home Care Visit [facility] [address] [place] [address] Danielle Prieto, OT OT DISCIPLINE DISCHARGE VISIT 02/13/2025 9:45 AM EDT Office Visit [facility] [address] [place] [address] Steve Levi, JOSEE Sprain of anterior talofibular ligament of right ankle, initial encounter (Primary Dx); Pain and swelling of ankle, right 02/13/2025 9:29 AM EDT - 02/13/2025 11:59 PM EDT Hospital Encounter [facility] [address] [place] [address] Steve Levi, JOSEE Discharge Disposition: Home or Self Care 02/11/2025 1:30 PM EDT [facility] [address] [place] [phone] Angeles Michelle, PT PT TFA VISIT 02/11/2025 Telephone [facility] 14 [facility] [address] [place] [address] Roxanna Londono NP ankle and leg pain 02/10/2025 12:00 PM EDT [facility] [address] [place] [phone] Danielle Prieto, OT OT HOME VISIT 02/09/2025 1:00 PM EDT [facility] [address] [place] [phone] Daisy Wilson, PING-VACATION PLANNER VACATION PLANNER HOME VISIT from Last 3 Months Immunizations Immunization Administration Dates Next Due COVID-19 (Pre-06/25) Pfizer Vaccine, mRNA, PF ,11/18/2020 COVID-19 Moderna Spikevax Vaccine 12+ 12/11/2023 Family History Medical History Relation Comments Esophageal cancer Brother 1 No Known Problems Brother 2 Heart disease Father Alzheimer's disease Mother Esophageal cancer Sister 1 Leukemia Sister 1 Breast cancer Sister 2 Rheumatoid arthritis Sister 2 Relation Status Comments Brother 1 Brother 2 Alive Daughter 1 Alive Daughter 2 Alive Daughter 3 Alive Daughter 4 Alive Father Mother Sister 1 Sister 2 Alive Sister 3 Alive Social History Tobacco Use Types Packs/Day Years Used Date Smoking Tobacco: Never Smokeless Tobacco: Never Tobacco Cessation:Counseling Given: Not Answered Alcohol Use Standard Drinks/Week Comments No 0 [...] Orientation Straight 09/13/2021 8: 33 PM EST Last Filed Vital Signs Vital Sign Reading Time Taken Comments Blood Pressure 120/68 04/15/2025 1:35 PM EDT Pulse 78 04/15/2025 1:35 PM EDT Temperature 36.2 C (97.2 F) 04/15/2025 1:35 PM EDT Respiratory Rate 16 02/20/2025 1:08 PM EDT Oxygen Saturation 95% 04/15/2025 1:35 PM EDT Inhaled Oxygen Concentration - - Weight 49.9 kg (110 lb) 03/19/2025 11:53 AM EDT Height 157 cm (5' 1.81 ) 03/03/2024 10:56 AM EDT Body Mass Index 20.24 03/03/2024 10:56 AM EDT Plan of Treatment Upcoming Encounters Date Type Department Care Team (Late st Contact Info) Description 05/15/2025 8:30 AM EDT Office Visit [facility] Neurology [address] [place] [address] Shaw Ogden MD 22 [facility], [address]nd [place] [address] [email or web address] 03/22/2026 1:10 PM EDT Office Visit [facility] Internal Medicine 14 [facility] [address] [place] [address] Roxanna Londono NP 14 [facility] [address] [place], [place] [phone] [email or web address] Health Maintenance Due Date Last Done Comments CREATININE LEVEL 03/19/2025 03/19/2024, , 05/29/2018, Additional history exists INFLUENZA VACCINE (#1) 2025 DEPRESSION SCREENING 03/19/2026 03/19/2025 COVID-19 VACCINE Completed 10/18/2024, , 12/11/2023, Additional history exists HEPATITIS A VACCINES Aged Out No long er eligible based on patient's age to complete this topic HIB VACCINES Aged Out No longer eligi ble based on patient's age to complete this topic MENINGOCOCCAL VACCINES (ACWY) Aged Out No longer eligible based on patient's age to complete this topic MENINGOCOCCAL VACCINES (B) Aged Out N o longer eligible based on patient's age to complete this topic Medical Devices Not on file Procedures Procedure Name Priority Date/Time Associated Diagnosis Comments XR ANKLE 3 OR MORE VIEWS (RIGHT) Routine 02/13/2025 9:40 AM EDT Pain and swelling of ankle, right COMPREHENSIVE METABOLIC PANEL Routine 03/19/2024 8:04 AM EDT Laboratory examination from Last 3 Months or Most Recently Relevant to Health Maintenance Results * XR ANKLE 3 OR MORE VIEWS (RIGHT) (02/13/2025 9:40 AM EDT) Narrative SYSTEMGENERATED, DOCUMENTATION - 02/13/2025 9:40 AM EDT This image report has been auto-finalized and has not been read by a Radiologist. Interpretation has been included in the provider encounter note for this date of service. us Steve Levi PA-C IMG XR LOWER EXTREMITY Final Result * (ABNORMAL) Comprehensive metabolic panel (03/19/2024 8:04 AM EDT) SODIUM 141 133 - 146 mmol/L [facility] POTASSIUM 3.9 3.3 - 5.1 mmol/L [facility] CHLORIDE 101 96 - 108 mmol/L [facility] CO2 27 21 - 35 mmol/L [facility] BUN 12 6 - 19 mg/dL [facility] CREATININE 0.60 0.5 - 1.5 mg/dL [facility] GLUCOSE 103(H) 70 - 99 mg/dL [facility] ALBUMIN 4.3 3.9 - 4.8 g/dL [facility] TOTAL PROTEIN 7.5 6.5 - 8.0 g/dL [facility] CALCIUM 9.4 8.4 - 10.3 mg/dL [facility] ALKALINE PHOSPHATASE 129(H) 39 - 117 U/L [facility] TOTAL BILIRUBIN 0.5 0.0 - 1.2 mg/dL [facility] AST 19 0 - 37 U/L [facility] ALT 8 0 - 40 U/L [facility] GLOBULIN 3.2 1 - 4.8 g/dL [facility] EGFR 87 >59 mL/min/1.7 3m2 [facility] Comment:Estimated glomerular filtration rate calculated using the CKD-EPI refit equation. ANION GAP 17 10 - 20 mmol/L [facility] Blood 03/19/2024 8:04 AM EDT 03/19/2024 8:05 AM EDT Roxanna Londono NP LAB BLOOD ORDERABLES Final Result [facility] [address] [place] [address] from Last 3 Months or Most Recently Relevant to Health Maintenance Insurance MEDICARE PART A & B [employer] MEDEX SUPPLEMENT MEDICARE PART A & B [employer] MEDEX SUPPLEMENT MEDICARE PART A & B [employer] MEDEX SUPPLEMENT MEDICARE PART A & B [employer] MEDEX SUPPLEMENT MEDICARE PART A & B [employer] MEDEX SUPPLEMENT MEDICARE PART A & B [employer] MEDEX SUPPLEMENT MEDICARE PART A & B [employer] MEDEX SUPPLEMENT MEDICARE PART A & B [employer] MED[employer] SUPPLEMENT MEDICARE PART A & B [employer] MEDEX SUPPLEMENT MEDICARE PART A & B [employer] MEDEX SUPPLEMENT Advance Directives For more information, please contact: [phone] (9AM - 5PM [facility], Sunday-Sunday) Documents on File Type Date Recorded Patient Burn Nurse Expl anation Power of Log Skidder POLST 10/29/2023 POLST MOLST 06/05/2019 molst Care Teams Client Success Manager Relationship Specialty Start Date End Date Roxanna Londono NP [address] [place] [address] [address] [place] [address] PCP - General 09/06/17 Ruby Mims OD [address] [place] [address] Optometry 06/10/18 Ivett Hodges MD [address] [place] [address] Dermatology 06/10/18 Roxanna Londono NP [address] [place], [place] [address] [place] [address] [email or web address] Insurance Assigned Provider 12/07/24 Additional Source Comments The information contained in this document represents components of the legal health record. It is not the complete legal health record.[facility]
== END 2025-05-11 15:29 | disposition home or self-care (01) ==
PROVIDERS: Visit Provider Nurse Practitioner Family
DX: S63.502A Unspecified sprain of left wrist, initial encounter (principal)

== ENCOUNTER 2025-05-11 14:47 | Outpatient (REF) | payer MEDICARE, SELFPAY ==
--- NOTE | ~2025-05-11 | XR_ITS ---
EXAMINATION: XR WRIST, LEFT CLINICAL INFORMATION: S63.502A - Unspecified sprain of left wrist, initial encounter COMPARISON: None available. TECHNIQUE: PA, lateral, and oblique views of the left wrist. FINDINGS: Generalized demineralization. Sclerosis along the articular surface and subchondral cyst formation with asymmetric joint space narrowing at the first carpometacarpal joint and scaphoid trapezoid. Asymmetric joint space narrowing at the radiocarpal joint. No acute cortical disruption. No gross malalignment. No lytic or blastic lesions. No subcutaneous emphysema. XR/XR wrist LT min 3V IMPRESSION: Degenerative changes involving mostly the first carpometacarpal joint and scaphoid trapezium joint. Osteopenia versus osteoporosis. Electronically signed by: Pedro Zhou MD 05/11/2025 03:41 PM EDT
== END 2025-05-11 14:48 | disposition home or self-care (01) ==
LOC: HO.HMGCX 14:47
PROVIDERS: PCP Nurse Practitioner Adult Health; Visit Provider Nurse Practitioner Family
DX: S63.502A Unspecified sprain of left wrist, initial encounter (principal); X58.XXXA Exposure to other specified factors, initial encounter
CPT/HCPCS: 73110; 99212

== ENCOUNTER → 2025-05-11 15:22 | Outpatient (BNV) | payer MEDICARE, SELFPAY | PROVIDERS: PCP Nurse Practitioner Adult Health; Visit Provider Radiology Diagnostic Radiology | DX: M18.12 Unilateral primary osteoarthritis of first carpometacarpal joint, left hand (principal) | CPT/HCPCS: 73110 ==